=== PATIENT | male | born 1955 ===

== ENCOUNTER → 2024-03-04 15:39 | Outpatient (REF) | payer MEDICARE, SELFPAY | LOC: RAD 15:39 | PROVIDERS: ATTENDING PHYSICIAN Surgery Vascular Surgery; FAMILY PHYSICIAN Internal Medicine | DX: I65.22 Occlusion and stenosis of left carotid artery (principal) | CPT/HCPCS: 93880 ==

== ENCOUNTER 2024-11-16 05:04 | Emergency (ER) | payer MEDICARE, SELFPAY ==
[2024-11-16 05:08] VITALS: BP 164/91
--- NOTE | 2024-11-16 05:30 | ED.GENMED ---
History of Present Illness
General
Chief Complaint: Musculo-Skeletal Complaint
Source: patient
Exam Limitations: none
Time Seen by Provider: 11/16/24 05:18
Nursing documentation reviewed up to this point in time: agreed with
History of Present Illness
History of Present Illness:
Note:
CHIEF COMPLAINT(S)
Foot pain and swelling.
HISTORY OF PRESENT ILLNESS
The patient is a 68-year-old male with a history of neuropathy, gout, afib on eliquis, htn, hlp, who presents with foot pain and swelling. The pain started last weekend, localized mainly to the bottom of the foot, and occasionally shoots up the leg.
The patient denies any falls or twisting incidents. He describes the pain as severe and continuous, affecting his ability to walk. He has a history of gout in the opposing foot. The patient denies fever or systemic symptoms and reports the foot
feeling swollen and painful when touched. The patient has not taken any medication for the pain, but he is on blood thinners. Despite having neuropathy, he describes the current pain as distinct and not neuropathic in nature. The foot pain does not
relieve with rest. He does report that 2 days ago, he was walking the beach and stepped on a shell and is concerned that something may be stuck in his foot.He denies any fevers or chills. He is feeling well otherwise., Headache
PHYSICAL EXAM
- Nursing notes reviewed and vital signs reviewed.
General: Patient is well appearing and in no acute distress; non-toxic
Skin: Warm and dry, no rashes or lesions
Head: Normocephalic, atraumatic
Eyes: Sclera non-icteric. EOMs intact.
Cardiac: Regular rate and rhythm, no murmurs
Peripheral Vascular: No lower extremity swelling or edema, 2+ DP and PT pulses bilaterally
Pulm: Normal respiratory effort
Musculoskeletal: Mild swelling noted over the left fifth tarsometatarsal joint very small area of erythema noted full ROM
Neuro: CN II-XII intact, no focal neurologic deficits.
Psychiatric: Appropriate mood and affect.
PLAN
Obtain an X-ray of the foot to rule out fractures and assess for any foreign bodies or structural abnormalities that might be causing pain and swelling.
DIFFERENTIAL DIAGNOSIS
- The Differential Diagnosis includes, in no particular order and is not limited to:
- Fracture of the foot
- Plantar fasciitis
- Foreign body in the foot
- Tendonitis
- Gout
- Deep vein thrombosis
- Peripheral neuropathy exacerbation
- Infection (cellulitis)
- Osteoarthritis
- Bone contusion
CHART REVIEW
No prior ER/documentation to review
MEDICATION RECONCILIATION
The patient is instructed to take a dose of acetaminophen (Tylenol) for pain management due to a history of blood thinner usage.
MEDICAL DECISION MAKING
- Complexity of Data Reviewed: Chronic conditions affecting care include neuropathy. The patient is evaluated for potential foot injury or systemic condition.
- Data:
Category 1
Clinical impression based on further conversation and examination leading to consideration for foot X-ray due to potential fracture or foreign body presence.
Category 3
Discussion of management includes providing acetaminophen as a pain relief option due to blood thinner use and planning for X-ray evaluation to ascertain the root cause of symptoms.
-Risk:
Consideration of admission/observation is not currently necessary based on patient stability; outpatient management is pursued with further imaging pending and close follow-up advised.
68-year-old male presents emergency department today with concerns of acute left lateral foot pain. He denies any presence of trauma. Is very sensitive to the touch on exam and there is a focal area of swelling and erythema. No signs of infection
on exam. No visible foreign body. Patient went for x-ray which shows no acute fracture no physical foreign body. Suspect acute gout. Patient has colchicine at home which he will start, will also initiate prednisone. Discussed follow-up with
primary and Ortho. ED attending also evaluated patient at bedside and agree with plan. Will give one-time dose of Toradol. Discussed avoiding NSAIDs at home. Patient stable for discharge.
Review of Systems
Review of Systems
All Other Systems: ROS reviewed and negative except as documented in HPI and ROS
Phy Exam
Physical Exam
Physical Exam:
see hpi
Course
Orders/Labs/Results
Orders:
Orders
11/16/24 05:26
Acetaminophen [Tylenol] 1,000 mg PO NOW STA
CR Foot - Left 2 Views Urgent
Comment:
Reason For Exam: left lateral foot pain, possible foreign body
11/16/24 06:39
Ketorolac [Toradol] 15 mg IM NOW STA
11/16/24 06:41
Prednisone [Deltasone] 50 mg PO NOW STA
Vital Signs
Initial and Last Documented VS:
Initial Vital Signs
Temp Pulse Resp BP Pulse Ox
97.5 F 67 20 164/91 99
11/16/24 05:08 11/16/24 05:08 11/16/24 05:08 11/16/24 05:08 11/16/24 05:08
Last Documented Vital Signs
Temp Pulse Resp BP Pulse Ox
97.5 F 67 20 164/91 99
11/16/24 05:08 11/16/24 05:08 11/16/24 05:08 11/16/24 05:08 11/16/24 05:30
*Pulse Oximetry
SaO2: 99
Oxygen Mode of Delivery: Room air
Patient hypoxic: no
*Critical Care Note
Total Time (30-74mins, 75-104mins- exclusive of procedures): Not Applicable
ED Attending Note
-
Portions of this chart may have been created with voice recognition software.� Occasional wrong word or��sound alike� substitutions may have occurred due to the inherent limitations of voice recognition software.
Discharge Plan
Departure
Patient Disposition: Home (Routine Discharge)
Date of Disposition: 11/16/24
Time of Disposition: 06:48
Patient with high blood pressure during this ER visit?: Yes
Condition: Good
Discharge Problem:
Gout attack, Acute foot pain
Instructions: Metatarsalgia (DC), Gout - ED (DC)
Prescriptions:
New
prednisone 20 mg tablet
40 mg PO DAILY 4 Days Qty: 8 0RF
No Action
atorvastatin 40 mg Tablet
40 mg PO DAILY
amlodipine 5 mg Tablet
5 mg PO DAILY
telmisartan 40 mg Tablet
40 mg PO DAILY
metoprolol succinate 25 mg Tablet Extended Release 24 Hr
25 mg PO BID
tadalafil 5 mg Tablet
5 mg PO DAILY
hydrochlorothiazide 12.5 mg Tablet
12.5 mg PO DAILY
Eliquis 5 mg Tablet
5 mg PO BID
ascorbic acid (vitamin C) [Vitamin C] 1,000 mg Tablet
1,000 mg PO DAILY
valacyclovir 500 mg Tablet
500 mg PO DAILY
zinc 10 mg Tablet
30 mg PO DAILY
cholecalciferol (vitamin D3) [Vitamin D3] 50 mcg (2,000 unit) Capsule
50 mcg PO DAILY
Centrum Silver Men 703-14-110-300 mcg Tablet
1 tab PO DAILY
[employer] 3 billion cell Capsule
1 cap PO DAILY
psyllium husk
500 mg PO BID
Referrals:
Da Moore MD [Family Provider, Internal Medicine]
Rito Spivey MD [Active, Orthopedics] - Call in 1-3 days for appt
Activity Restrictions/Additional Instructions:
Your x-ray showed no evidence of foreign body or acute fracture. You can start taking the colchicine at home. Prednisone has been sent to your pharmacy.
You can also take Tylenol. Please avoid NSAIDs.
Please continue to monitor your symptoms. Please follow-up with your primary care provider, please call the attached number to schedule appointment to see Ortho for follow-up. PLEASE RETURN TO ER SHOULD YOU DEVELOP AN ACUTE WORSENING OF YOUR PAIN
OR SWELLING, SURROUNDING REDNESS, FEVERS OR CHILLS, CHEST PAIN, SHORTNESS OF BREATH, OR ANY OTHER SIGNS OR SYMPTOMS RECENTLY.
Interventions
Interventions:
*Risk Screen - Suicide Last Done: 11/16/24 05:08
*General Assessment Last Done: 11/16/24 05:08
*Neglect/Abuse Screening Last Done: 11/16/24 05:16
*ED- Fall Risk Assessment Last Done: 11/16/24 07:08
*ED COVID-19 Vaccine History Last Done: 11/16/24 05:08
*Nursing Disposition Last Done: 11/16/24 07:08
ED-Musculoskeletal Assessment Last Done: 11/16/24 05:57
Discharge Date and Time
Discharge Date/Time: 11/16/24 07:09
Print Language: SYRIAN
[2024-11-16] MEDS: TYLENOL 1000 MG PO (05:44)
[2024-11-16] MEDS: TORADOL 15 MG IM (07:00)
[2024-11-16] MEDS: DELTASONE 50 MG PO (07:01)
== END 2024-11-16 07:09 | disposition home or self-care (01) ==
LOC: EMR 05:04
PROVIDERS: EMERGENCY PHYSICIAN Emergency Medicine; FAMILY PHYSICIAN Internal Medicine
DX: M10.9 Gout, unspecified (principal); M79.672 Pain in left foot; R22.42 Localized swelling, mass and lump, left lower limb; L53.9 Erythematous condition, unspecified; R26.89 Other abnormalities of gait and mobility; G62.9 Polyneuropathy, unspecified; I48.91 Unspecified atrial fibrillation; M19.90 Unspecified osteoarthritis, unspecified site; I48.92 Unspecified atrial flutter; I10 Essential (primary) hypertension; E78.5 Hyperlipidemia, unspecified; Z79.01 Long term (current) use of anticoagulants; Z95.0 Presence of cardiac pacemaker; Z85.46 Personal history of malignant neoplasm of prostate; Z87.891 Personal history of nicotine dependence; Z87.01 Personal history of pneumonia (recurrent); Z87.442 Personal history of urinary calculi; Z91.041 Radiographic dye allergy status
CPT/HCPCS: 99284; 96372; 73620

== ENCOUNTER → 2025-02-26 09:43 | Outpatient (REF) | payer MEDICARE, SELFPAY | LOC: DHVS 09:43 | PROVIDERS: ATTENDING PHYSICIAN Surgery Vascular Surgery; FAMILY PHYSICIAN Internal Medicine | DX: I65.22 Occlusion and stenosis of left carotid artery (principal) | CPT/HCPCS: 93880 ==